=== PATIENT | male | born 1990 | race African-American/Black ===

== ENCOUNTER 2019-10-01 22:33 | Emergency (ER) | payer BC ==
--- NOTE | 2019-10-01 22:50 | ED ---
Psychiatric Complaint - HPI Summary HPI Summary: 29-year-old male was brought in via [id number] order by police for making suicidal comments to his brother. Patient currently denies suicidal or homicidal ideation in the emergency department. Patient is extremely frustrated and feels he lost his rights. Patient states he didn't mean the things he said and he just wants to "go to bed and then go to work tomorrow". Pt is aggressive with staff during interview. Patient states she physically feels well and has no fever, chest pain, abdominal pain, shortness breath, pain with urination, rash. Patient denies recent alcohol use, occasional drug use, smoking. Family history and social history are noncontributory. - History Of Current Complaint Chief Complaint: EDSuicidal Hx Obtained From: Patient Onset/Duration: Sudden Onset, Lasting Hours Timing: Constant Severity Initially: Moderate Severity Currently: Moderate Character: Angry Aggravating Factor(s): Recent Stress Has Suicidal: Denies: Thoughts Has Homicidal: Denies: Thoughts - Allergies/Home Medications Allergies/Adverse Reactions: Allergies Allergy/AdvReac Type Severity Reaction Status Date / Time Penicillins Allergy Hives Verified 10/01/19 23:02 shellfish derived Allergy Difficulty Verified 10/01/19 23:02 Breathing/Wheezing Home Medications: Home Medications Xanax TAB* 0.5 mg PO BID PRN 10/01/19 [History Confirmed 10/01/19] PMH/Surg Hx/FS Hx/Imm Hx Endocrine/Hematology History: Denies: Hx Anticoagulant Therapy Cardiovascular History: Denies: Hx Cardiac Arrest Respiratory History: Denies: Hx Chronic Obstructive Pulmonary Disease (COPD) History: Denies: Hx Dialysis Sensory History: Reports: Hx Contacts or Glasses - WEARS CONTACTS Denies: Hx Hearing Aid Opthamlomology History: Reports: Hx Contacts or Glasses - WEARS CONTACTS Neurological History: Denies: Hx Developmental Delay Psychiatric History: Denies: Hx Autism - Immunization History Date of Tetanus Vaccine: unk Date of Influenza Vaccine: none Infectious Disease History: No Infectious Disease History: Denies: Traveled Outside the [place] in Last 30 Days - Family History Known Family History: Positive: Unknown - Social History Alcohol Use: Weekly Substance Use Type: Reports: None Smoking Status (MU): Never Smoked Tobacco Review of Systems Constitutional: Negative Eyes: Negative ENT: Negative Cardiovascular: Negative Respiratory: Negative Gastrointestinal: Negative Genitourinary: Negative Musculoskeletal: Negative Skin: Negative Neurological: Negative Psychological: Normal All Other Systems Reviewed And Are Negative: Yes Physical Exam Triage Information Reviewed: Yes Vital Signs On Initial Exam: Initial Vitals Temp Pulse Resp BP Pulse Ox 98.6 F 85 15 154/85 94 10/01/19 22:34 10/01/19 22:34 10/01/19 22:34 10/01/19 22:34 10/01/19 22:34 Vital Signs Reviewed: Yes Appearance: Positive: Well-Appearing, No Pain Distress Skin: Positive: Warm, Skin Color Reflects Adequate Perfusion Eyes: Positive: EOMI, LAURA ENT: Positive: Hearing grossly normal Neck: Positive: Nontender Respiratory/Lung Sounds: Positive: Clear to Auscultation, Breath Sounds Present Cardiovascular: Positive: RRR, S1, S2 Abdomen Description: Positive: Nontender, Soft Bowel Sounds: Positive: Present Musculoskeletal: Positive: Strength/ROM Intact Neurological: Positive: Sensory/Motor Intact, Alert, Oriented to Person Place, Time, Normal Gait, Speech Normal Psychiatric: Positive: Normal AVPU Assessment: Alert Procedures - Sedation Patient Received Moderate/Deep Sedation with Procedure: No Diagnostics - Vital Signs Vital Signs Temp Pulse Resp BP Pulse Ox 10/01/19 22:34 98.6 F 85 15 154/85 94 - Laboratory Result Diagrams: 10/01/19 23:09 10/01/19 23:09 Lab Statement: Any lab studies that have been ordered have been reviewed, and results considered in the medical decision making process. Course/Dx - Course Course Of Treatment: Patient was evaluated in the emergency department today for suicidal ideation. Patient was seen and examined their vital signs are stable and they were afebrile. Upon arrival to emergency department the patient was placed in a safe room, placed under observation and changed into hospital scrubs. Their belongings were collected and placed in a locked box. Laboratory studies were ordered for mental health clearance including urinalysis and toxicology. Labs returned WNL Patient was cleared for mental health evaluation and disposition by psychiatric services.Kofi Bae, psychiatry deemed the patient fit to go home for outpatient follow-up. Patient diagnosed with anxiety disorder unspecified. - Differential Dx/Clinical Impression Differential Diagnosis/HQI/PQRI: Positive: Acute Psychosis, Anxiety, Depression , Homicidal Ideation, Homicidal Gesture, Suicide Attempt, Suicidal Ideation, Suicidal Gesture Provider Diagnosis: Anxiety disorder - Physician Notifications Discussed Care Of Patient With: Autumn iKrby - felt the patient was medically stable for discharge. Patient discharged with anxiety disorder unspecified. Time Discussed With Above Provider: 00:39 Discharge ED - Sign-Out/Discharge Documenting (check all that apply): Patient Departure - Discharge Plan Condition: Stable Disposition: HOME Referrals: Shadi Coleman MD [Primary Care Provider] - - Billing Disposition and Condition Condition: STABLE Disposition: Home
[2019-10-01 23:16] LABS: ABS Basophils 0.1 10^3/ul (0-0.2); ABS Eosinophils 0.1 10^3/ul (0-0.6); ABS Lymphocytes 2.4 10^3/ul (1.0-4.8); ABS Monocytes 0.7 10^3/ul (0-0.8); ABS Neutrophils 7.5 10^3/ul (1.5-7.7); Eosinophil % 0.7 %; Hematocrit 46 % (42-52); Hemoglobin 15.3 g/dL (14.0-18.0); Lymphocyte % 22.3 %; Mean Corpuscular HGB Conc 33 g/dL (31-36); Mean Corpuscular Hemoglobin 28 pg (27-31); Mean Corpuscular Volume 85 fL (80-94); Mean Platelet Volume 9.5 fL (7.4-10.4); Nucleated Red Blood Cells % 0.1; Platelet Count 207 10^3/uL (150-450); Red Blood Count 5.41 10^6 /uL (4.18-5.48); Red Cell Distribution Width 13 % (10-15); White Blood Count 10.8 10^3/uL (3.5-10.8)
[2019-10-01 23:31] LABS: ALT 20 U/L (7-52); AST 26 U/L (13-39); Albumin 4.6 g/dL (3.2-5.2); Albumin/Globulin Ratio 1.3 (1-3); Alkaline Phosphatase 61 U/L (34-104); Anion Gap 7 mmol/L (2-11); BUN/Creatinine Ratio 12.2 (8-20); Blood Urea Nitrogen 14 mg/dL (6-24); CO2 Carbon Dioxide 24 mmol/L (22-32); Calcium 10.1 mg/dL (8.6-10.3); Chloride 107 mmol/L (101-111); EGFR African American 90.3 (>60); EGFR Non-African American 74.7 (>60); Globulin 3.5 g/dL (2-4); Glucose 107 mg/dL (70-100); Potassium 3.8 mmol/L (3.5-5.0); Sodium 138 mmol/L (135-145); Total Protein 8.1 g/dL (6.4-8.9)
[2019-10-01 23:49] LABS: Urine Appearance Cloudy; Urine Bilirubin Negative (Negative); Urine Blood Negative (Negative); Urine Color Yellow; Urine Glucose Negative (Negative); Urine Ketones Negative (Negative); Urine Nitrite Negative (Negative); Urine Protein Negative (Negative); Urine Specific Gravity 1.026 (1.010-1.030); Urine Urobilinogen Negative (Negative)
[2019-10-02 00:04] LABS: Acetaminophen < 15 mcg/mL; Alcohol < 10 mg/dL (<10); Salicylate < 2.50 mg/dL (<30)
[2019-10-02 00:17] LABS: Urine Benzodiazepine Screen None Detected (None Detect); Urine Opiates Screen None Detected (None Detect)
[2019-10-02 00:19] LABS: TSH (Thyroid Stimulating Horm) 3.45 mcIU/mL (0.34-5.60)
[2019-10-02 00:47] VITALS: BP 130/79
== END 2019-10-02 00:45 | disposition home or self-care (01) ==
LOC: ED 22:33
DX: F41.9 Anxiety disorder, unspecified (principal); Z88.0 Allergy status to penicillin
CPT/HCPCS: 36415; 80053; 80307; 80320; 80329; 81003; 84443; 85025; 99285; G0480